=== PATIENT | male | born 1955 | race Caucasian/White ===

== ENCOUNTER 2020-03-01 11:40 | Inpatient (IN) | payer MEDICARE, MEDICAID ==
[~2020-03-01] VITALS: Ht 175.3 cm; Wt 69.1 kg
[~2020-03-01 11:40] MED LIST: CEPH500 PO; LURA40TA2 PO
[2020-03-02] MEDS ORDERED: LORazepam 2 MG/ML VIAL ONE (21:49)
[2020-03-02] MEDS ORDERED: DiphenhydrAMINE HCL 50 MG/ML VIAL ONE (21:49)
[2020-03-02] MEDS ORDERED: HALOPERIDOL LACTATE 5 MG/ML VIAL ONE (21:50)
[2020-03-02] MEDS ORDERED: DiphenhydrAMINE HCL 50 MG/ML VIAL IM ONE (22:30)
[2020-03-02] MEDS ORDERED: HALOPERIDOL LACTATE 5 MG/ML VIAL IM ONE (22:30)
[2020-03-02] MEDS ORDERED: LORazepam 2 MG/ML VIAL IM ONE (22:30)
[2020-03-02 22:49] VITALS: BP 139/87
[2020-03-03 07:58] LABS: BASOPHILS % (AUTO) 0.5 % (0.0-2.0); EOSINOPHILS % (AUTO) 3.5 % (1.0-6.0); HEMATOCRIT 39.5 % (41-53); HEMOGLOBIN 13.4 g/dL (13.5-17.5); LYMPHOCYTES # (AUTO) 1.6 K/uL (1.0-4.8); MEAN CORPUSCULAR HEMOGLOBIN 32.2 pg (26.0-34.0); MEAN CORPUSCULAR HGB CONC 33.8 G/dL (31.0-37.0); MEAN CORPUSCULAR VOLUME 95 fL (80-100); MONOCYTES # (AUTO) 0.5 K/uL (0.1-1.0); MONOCYTES % (AUTO) 6.8 % (2.0-9.0); NEUTROPHILS # (AUTO) 4.6 K/uL (1.8-7.7); NEUTROPHILS % (AUTO) 66.2 % (40.0-70.0); PLATELET COUNT (AUTO) 355 K/uL (150-450); RED BLOOD CELL COUNT(AUTO) 4.15 MIL/uL (4.50-5.90); RED CELL DISTRIBUTION WIDTH 13.5 % (11.5-14.5)
[2020-03-03] MEDS ORDERED: ALBUTEROL SULFATE HFA 90 MCG/PUFF 8 GM INHALER IH PRN (08:00)
[2020-03-03] MEDS ORDERED: MAG HYDROX/AL HYDROX/SIMETH ES 30 ML SUSPENSION UDCUP PO PRN (08:00)
[2020-03-03] MEDS ORDERED: MAGNESIUM HYDROXIDE SUSPENSION 30 ML UDCUP PO PRN (08:00)
[2020-03-03] MEDS ORDERED: ONDANSETRON HCL 4 MG TABLET PO PRN (08:00)
[2020-03-03] MEDS ORDERED: PETROLATUM,WHITE 28 GM JELLY TP PRN (08:00)
[2020-03-03] MEDS ORDERED: LOPERAMIDE HCL 2 MG CAPSULE PO PRN (08:00)
[2020-03-03] MEDS ORDERED: DOCUSATE SODIUM 100 MG CAPSULE PO PRN (08:00)
[2020-03-03] MEDS ORDERED: CloNIDine HCL 0.1 MG TABLET PO PRN (08:00)
[2020-03-03] MEDS ORDERED: GuaiFENesin/D-METHORPHAN [SUGAR-FREE] 200-20MG/10 ML SYRUP UDCUP PO PRN (08:00)
[2020-03-03 08:14] LABS: ALANINE AMINOTRANSFERASE 33 U/L (12-78); ALBUMIN 2.8 g/dL (3.4-5.0); ALKALINE PHOSPHATASE 62 U/L (46-116); ANION GAP 9 mmol/L (8-16); ASPARTATE AMINOTRANSFERASE 34 U/L (15-37); BILIRUBIN,TOTAL 0.2 mg/dL (0.1-1.0); CALCIUM, TOTAL 9.1 mg/dL (8.8-10.5); CARBON DIOXIDE 27 mmol/L (22-29); CHLORIDE 104 mmol/L (98-107); CHOLESTEROL 184 mg/dL (131-200); CREATININE 0.85 mg/dL (0.60-1.30); FREE T4 (FREE THYROXINE) 1.11 ng/dL (0.76-1.46); GLOMERULAR FILTR. RATE CALC > 60 mL/min (>60); GLUCOSE,RANDOM 93 mg/dL (70-110); HDL CHOLESTEROL 37 mg/dL (40-60); LDL CHOL (CALC.) 124 mg/dL (0-130); POTASSIUM 3.9 mmol/L (3.5-5.1); SODIUM SERUM 140 mmol/L (136-145); THYROID STIMULATING HORMONE 2.96 uIU/mL (0.36-3.74); TOTAL PROTEIN, SERUM 6.6 g/dL (6.4-8.2); TRIGLYCERIDES 116 mg/dL (15-150); UREA NITROGEN, BLOOD 8 mg/dL (7-18)
[2020-03-03 08:19] VITALS: BP 134/97
[2020-03-03] MEDS: LURASIDONE HCL 60 MG TABLET PO SCH (16:10)
[2020-03-03 16:11] VITALS: BP 138/87
[2020-03-03 18:26] VITALS: BP 135/95
[2020-03-03] MEDS: IBUPROFEN 400 MG TABLET PO PRN (19:26)
[2020-03-03] MEDS: NICOTINE 14 MG/24 HOUR PATCH TD PRN (21:22)
[2020-03-03] MEDS: LORazepam 1 MG TABLET PO PRN (22:28)
[2020-03-03] MEDS: HALOPERIDOL 5 MG TABLET PO PRN (22:28)
[2020-03-04 06:40] VITALS: BP 132/79
[2020-03-04 08:13] VITALS: BP 129/83
[2020-03-04 14:08] VITALS: BP 135/79
[2020-03-04] MEDS: IBUPROFEN 400 MG TABLET PO PRN ×2 (14:08→22:14)
[2020-03-04 16:06] VITALS: BP 144/88
[2020-03-04] MEDS: LURASIDONE HCL 60 MG TABLET PO SCH (16:35)
[2020-03-04] MEDS: ZOLPIDEM TARTRATE 10 MG TABLET PO PRN (22:13)
[2020-03-05] MEDS ORDERED: DiphenhydrAMINE HCL 50 MG/ML VIAL ONE (04:08)
[2020-03-05] MEDS ORDERED: LORazepam 2 MG/ML VIAL ONE (04:09)
[2020-03-05] MEDS ORDERED: HALOPERIDOL LACTATE 5 MG/ML VIAL ONE (04:09)
[2020-03-05] MEDS ORDERED: HALOPERIDOL LACTATE 5 MG/ML VIAL IM ONE (04:30)
[2020-03-05] MEDS ORDERED: LORazepam 2 MG/ML VIAL IM ONE (04:30)
[2020-03-05] MEDS ORDERED: DiphenhydrAMINE HCL 50 MG/ML VIAL IM ONE (04:30)
[2020-03-05] MEDS: NICOTINE 14 MG/24 HOUR PATCH TD PRN (14:56)
[2020-03-05 16:25] VITALS: BP 131/76
[2020-03-05] MEDS: IBUPROFEN 400 MG TABLET PO PRN (16:27)
[2020-03-05] MEDS: LURASIDONE HCL 60 MG TABLET PO SCH (16:28)
[2020-03-05] MEDS: ZOLPIDEM TARTRATE 10 MG TABLET PO PRN (20:47)
[2020-03-06 04:00] VITALS: BP 126/81
[2020-03-06] MEDS: IBUPROFEN 400 MG TABLET PO PRN ×2 (04:08→16:02)
[2020-03-06 08:23] VITALS: BP 131/83
[2020-03-06] MEDS: NICOTINE 14 MG/24 HOUR PATCH TD PRN (15:50)
[2020-03-06 16:00] VITALS: BP 120/81
[2020-03-06] MEDS: LURASIDONE HCL 60 MG TABLET PO SCH (16:37)
[2020-03-06] MEDS: DIVALPROEX SODIUM 500 MG DR TABLET PO SCH (20:39)
[2020-03-07 03:24] VITALS: BP 124/86
[2020-03-07] MEDS: DIVALPROEX SODIUM 500 MG DR TABLET PO SCH ×2 (08:10→20:27)
[2020-03-07 08:20] VITALS: BP 107/84
[2020-03-07 09:22] VITALS: BP 95/68
[2020-03-07] MEDS: ACETAMINOPHEN 325 MG TABLET PO PRN (10:23)
[2020-03-07] MEDS ORDERED: LORazepam 2 MG/ML VIAL ONE (11:12)
[2020-03-07] MEDS ORDERED: HALOPERIDOL LACTATE 5 MG/ML VIAL ONE (11:12)
[2020-03-07] MEDS ORDERED: DiphenhydrAMINE HCL 50 MG/ML VIAL ONE (11:13)
[2020-03-07] MEDS ORDERED: LORazepam 2 MG/ML VIAL IM ONE (11:15)
[2020-03-07] MEDS ORDERED: DiphenhydrAMINE HCL 50 MG/ML VIAL IM ONE (11:15)
[2020-03-07] MEDS ORDERED: HALOPERIDOL LACTATE 5 MG/ML VIAL IM ONE (11:15)
[2020-03-07 14:11] VITALS: BP 107/84
[2020-03-07] MEDS: LURASIDONE HCL 60 MG TABLET PO SCH (18:52)
[2020-03-08] VITALS (8 sets, daily range): BP systolic 122–138; BP diastolic 70–83
[2020-03-08] MEDS: IBUPROFEN 400 MG TABLET PO PRN ×2 (05:34→14:51)
[2020-03-08] MEDS: LORazepam 1 MG TABLET PO PRN ×2 (05:34→09:32)
[2020-03-08] MEDS: DIVALPROEX SODIUM 500 MG DR TABLET PO SCH ×2 (08:25→20:33)
[2020-03-08] MEDS: CEPHALEXIN MONOHYDRATE 500 MG CAPSULE PO SCH (16:31)
[2020-03-08] MEDS: LURASIDONE HCL 60 MG TABLET PO SCH (16:31)
[2020-03-08] MEDS: BACITRACIN 28.4 GM OINTMENT TP SCH (16:32)
[2020-03-09] VITALS (7 sets, daily range): BP systolic 111–140; BP diastolic 71–80
[2020-03-09] MEDS: DIVALPROEX SODIUM 500 MG DR TABLET PO SCH ×2 (08:12→20:34)
[2020-03-09] MEDS: CEPHALEXIN MONOHYDRATE 500 MG CAPSULE PO SCH ×3 (08:12→16:44)
[2020-03-09] MEDS: BACITRACIN 28.4 GM OINTMENT TP SCH ×2 (08:14→16:44)
[2020-03-09] MEDS: LURASIDONE HCL 60 MG TABLET PO SCH (16:44)
[2020-03-09] MEDS: IBUPROFEN 400 MG TABLET PO PRN (18:49)
[2020-03-09] MEDS: NICOTINE 14 MG/24 HOUR PATCH TD PRN (18:49)
[2020-03-10 00:01] VITALS: BP 120/79
[2020-03-10] MEDS: ZOLPIDEM TARTRATE 10 MG TABLET PO PRN ×2 (00:03→21:01)
[2020-03-10] MEDS: ACETAMINOPHEN 325 MG TABLET PO PRN ×2 (00:03→12:16)
[2020-03-10 08:05] VITALS: BP 113/78
[2020-03-10] MEDS: IBUPROFEN 400 MG TABLET PO PRN ×2 (08:05→21:02)
[2020-03-10] MEDS: DIVALPROEX SODIUM 500 MG DR TABLET PO SCH ×2 (08:05→20:36)
[2020-03-10] MEDS: CEPHALEXIN MONOHYDRATE 500 MG CAPSULE PO SCH ×3 (08:05→16:35)
[2020-03-10] MEDS: BACITRACIN 28.4 GM OINTMENT TP SCH ×2 (08:06→16:35)
[2020-03-10 08:09] VITALS: BP 113/78
[2020-03-10] MEDS ORDERED: TraMADol HCL 50 MG TABLET PO PRN (11:30)
[2020-03-10 12:16] VITALS: BP 119/79
[2020-03-10] MEDS: NICOTINE 14 MG/24 HOUR PATCH TD PRN (16:12)
[2020-03-10 16:21] VITALS: BP 135/83
[2020-03-10] MEDS: LURASIDONE HCL 60 MG TABLET PO SCH (16:35)
[2020-03-10 20:58] VITALS: BP 123/69
[2020-03-11 02:18] VITALS: BP 103/83
[2020-03-11] MEDS: IBUPROFEN 400 MG TABLET PO PRN ×2 (02:24→16:32)
[2020-03-11 02:35] VITALS: BP 114/80
[2020-03-11] MEDS: DIVALPROEX SODIUM 500 MG DR TABLET PO SCH ×2 (08:33→20:31)
[2020-03-11] MEDS: PredniSONE 10 MG TABLET PO SCH (08:33)
[2020-03-11] MEDS: CEPHALEXIN MONOHYDRATE 500 MG CAPSULE PO SCH ×3 (08:34→16:32)
[2020-03-11] MEDS: BACITRACIN 28.4 GM OINTMENT TP SCH ×2 (08:34→16:32)
[2020-03-11] MEDS: ACETAMINOPHEN 325 MG TABLET PO PRN (09:24)
[2020-03-11 12:03] VITALS: BP 117/78
[2020-03-11] MEDS ORDERED: OMEGA-3/DHA/EPA/FISH OIL 1,000 MG CAPSULE PO ONE (14:30)
[2020-03-11 16:15] VITALS: BP 142/68
[2020-03-11 16:30] VITALS: BP 140/68
[2020-03-11] MEDS: LURASIDONE HCL 60 MG TABLET PO SCH (16:32)
[2020-03-11] MEDS: ZOLPIDEM TARTRATE 10 MG TABLET PO PRN (22:46)
[2020-03-12 02:00] VITALS: BP 112/81
[2020-03-12] MEDS: HALOPERIDOL 5 MG TABLET PO PRN (02:36)
[2020-03-12] MEDS: LORazepam 1 MG TABLET PO PRN (02:36)
[2020-03-12] MEDS: CEPHALEXIN MONOHYDRATE 500 MG CAPSULE PO SCH ×2 (08:24→13:20)
[2020-03-12] MEDS: PredniSONE 10 MG TABLET PO SCH (08:24)
[2020-03-12] MEDS: DIVALPROEX SODIUM 500 MG DR TABLET PO SCH (08:24)
[2020-03-12 08:25] VITALS: BP 110/67
[2020-03-12] MEDS: BACITRACIN 28.4 GM OINTMENT TP SCH (08:25)
[2020-03-12] MEDS: ACETAMINOPHEN 325 MG TABLET PO PRN (15:29)
[2020-03-12] MEDS ORDERED: PRED10 PO (15:53)
[2020-03-12] MEDS ORDERED: DIVA-112 PO (15:53)
[2020-03-12] MEDS ORDERED: LURA60TA PO (15:53)
== END 2020-03-12 16:30 | disposition home or self-care (01) | DRG 885 ==
LOC: B2X 03-02 22:35
DX: F31.2 Bipolar disorder, current episode manic severe with psychotic features (principal); F15.10 Other stimulant abuse, uncomplicated; F12.10 Cannabis abuse, uncomplicated; M06.9 Rheumatoid arthritis, unspecified; M19.90 Unspecified osteoarthritis, unspecified site; J44.9 Chronic obstructive pulmonary disease, unspecified; D64.9 Anemia, unspecified; Z59.0 Homelessness; I10 Essential (primary) hypertension; Z79.899 Other long term (current) drug therapy; M54.5 Low back pain; L03.039 Cellulitis of unspecified toe; Z20.828 Contact with and (suspected) exposure to other viral communicable diseases
CPT/HCPCS: 72220; 84436; 84439; 84443; 87081; J1200; J1630; J2060